=== PATIENT | female | born 1945 | race African-American/Black ===

== ENCOUNTER 2021-11-07 15:39 | Outpatient (CLI) | payer MEDICARE, MEDICAID, SELFPAY ==
[2021-11-07 16:25] LABS: Hematocrit 40.1 % (37.0-47.0); Mean Corpuscular HGB Conc 29.9 g/dl (32-36); Mean Corpuscular Hemoglobin 22.6 pg (26-34); Mean Corpuscular Volume 75.5 fl (80-100); Mean Platelet Volume 9.2 fl (7.4-10.4); Platelet Count Result 166 k/mm3 (150-375); Red Blood Count 5.31 M/mm3 (4.2-5.4); Red Cell Distribution Width 16.2 % (11.5-14.5); White Blood Count 4.8 K/mm3 (4.5-10.0)
[2021-11-07 16:39] LABS: Albumin Level 4.3 g/dL (3.5-5.1); Anion Gap 11 mmol/L (8-16); Blood Urea Nitrogen 21 mg/dL (7-17); Calcium 9.4 mg/dL (8.4-10.2); Carbon Dioxide 31 mmol/L (22-30); Chloride 101 mmol/L (98-107); Estimated Glomerular Filt Rate 48; Glucose 95 mg/dL (65-110); Phosphorus 3.2 mg/dL (2.5-4.5); Sodium 143 mmol/L (137-145)
[2021-11-07 16:40] LABS: Creatinine Urine 320.9 mg/dL
[2021-11-07 16:51] LABS: Parathyroid Intact 161.5 pg/mL (7.5-53.5)
[2021-11-07 17:00] LABS: Total Protein Urine Random < 5 mg/dL; Ur Ttl Prot Creatinine Ratio < 0.02 mg/mg (0-0.20)
== END 2021-11-07 15:40 | disposition home or self-care (01) ==
PROVIDERS: Visit Provider Internal Medicine Nephrology
DX: N18.31 Chronic kidney disease, stage 3a (principal)
CPT/HCPCS: 36415; 80069; 82570; 83970; 84156; 85027

== ENCOUNTER 2022-04-30 13:43 | Outpatient (CLI) | payer MEDICARE, MEDICAID, SELFPAY ==
[2022-04-30 14:15] LABS: Hematocrit 39.1 % (37.0-47.0); Hemoglobin 11.7 g/dL (12.0-15.0); Mean Corpuscular HGB Conc 29.9 g/dl (32-36); Mean Corpuscular Hemoglobin 22.6 pg (26-34); Mean Corpuscular Volume 75.5 fl (80-100); Mean Platelet Volume 9.1 fl (7.4-10.4); Platelet Count Result 151 k/mm3 (150-375); Red Blood Count 5.18 M/mm3 (4.2-5.4); White Blood Count 4.8 K/mm3 (4.5-10.0)
[2022-04-30 14:26] LABS: Albumin Level 4.5 g/dL (3.5-5.1); Anion Gap 15 mmol/L (8-16); Blood Urea Nitrogen 25 mg/dL (7-17); Calcium 9.3 mg/dL (8.4-10.2); Carbon Dioxide 29 mmol/L (22-30); Chloride 100 mmol/L (98-107); Estimated Glomerular Filt Rate 48; Glucose 105 mg/dL (65-110); Phosphorus 3.4 mg/dL (2.5-4.5); Potassium 3.6 mmol/L (3.4-5.0); Sodium 144 mmol/L (137-145)
[2022-04-30 14:38] LABS: Parathyroid Intact 159.3 pg/mL (7.5-53.5)
[2022-04-30 15:03] LABS: Creatinine Urine 206.5 mg/dL
[2022-04-30 15:15] LABS: Total Protein Urine Random < 5 mg/dL; Ur Ttl Prot Creatinine Ratio < 0.02 mg/mg (0-0.20)
== END 2022-04-30 13:44 | disposition home or self-care (01) ==
PROVIDERS: Visit Provider Internal Medicine Nephrology
DX: N18.31 Chronic kidney disease, stage 3a (principal)
CPT/HCPCS: 36415; 80069; 82570; 83970; 84156; 85027

== ENCOUNTER 2022-10-25 14:17 | Outpatient (CLI) | payer MEDICARE, MEDICAID, SELFPAY ==
[2022-10-25 14:52] LABS: Hematocrit 39.5 % (37.0-47.0); Mean Corpuscular HGB Conc 30.4 g/dl (32-36); Mean Corpuscular Hemoglobin 22.9 pg (26-34); Mean Corpuscular Volume 75.2 fl (80-100); Mean Platelet Volume 9.5 fl (7.4-10.4); Platelet Count Result 174 k/mm3 (150-375); Red Blood Count 5.25 M/mm3 (4.2-5.4); Red Cell Distribution Width 17.7 % (11.5-14.5); White Blood Count 4.6 K/mm3 (4.5-10.0)
[2022-10-25 15:05] LABS: Creatinine Urine 232.9 mg/dL
[2022-10-25 15:07] LABS: Albumin Level 4.2 g/dL (3.5-5.1); Anion Gap 5 mmol/L (8-16); Blood Urea Nitrogen 24 mg/dL (7-17); Calcium 9.4 mg/dL (8.4-10.2); Carbon Dioxide 35 mmol/L (22-30); Chloride 99 mmol/L (98-107); Estimated Glomerular Filt Rate 48; Glucose 141 mg/dL (65-110); Phosphorus 3.3 mg/dL (2.5-4.5); Potassium 3.5 mmol/L (3.4-5.0); Sodium 139 mmol/L (137-145)
[2022-10-25 15:18] LABS: Parathyroid Intact 188.7 pg/mL (7.5-53.5)
[2022-10-25 18:43] LABS: Total Protein Urine Random < 5 mg/dL; Ur Ttl Prot Creatinine Ratio < 0.02 mg/mg (0-0.20)
== END 2022-10-25 14:18 | disposition home or self-care (01) ==
PROVIDERS: PCP Internal Medicine; Visit Provider Internal Medicine Nephrology
DX: N18.31 Chronic kidney disease, stage 3a (principal)
CPT/HCPCS: 36415; 80069; 82570; 83970; 84156; 85027

== ENCOUNTER 2022-12-16 10:33 | Emergency (ER) | payer MEDICARE, MEDICAID, SELFPAY ==
--- NOTE | ~2022-12-16 | CT_ITS ---
EXAMINATION: CT cervical spine wo con DATE: 12/16/2022 12:25 INDICATION: Neck pain TECHNIQUE: Computed tomography (CT) of the cervical spine was performed without intravenous contrast. The dose-length product (DLP) was 282.97 mGy-cm. Automated exposure control and iterative reconstruc tion technique were employed. COMPARISON: None FINDINGS: Bone alignment is normal. There is no fracture. The vertebral body heights are maintained. There is moderate loss of intervertebral disc space height at C3-4, C4-5, C5-C6, and C6-7. The odonto id process is intact. There is multilevel moderate to severe facet and uncovertebral joint osteoarthr itis. IMPRESSION: 1. Moderate to severe cervical spondylosis without acute findings. Reviewed, dictated and finalized at location []
--- NOTE | ~2022-12-16 | CT_ITS ---
EXAMINATION: CT brain wo con DATE: 12/16/2022 12:25 INDICATION: Posterior headache and left ear pain for 3 days. TECHNIQUE: Computed tomography (CT) of the head was performed without intravenous contrast. The mA wa s adjusted according to patient size. Iterative reconstruction technique was employed. Exam dose: 68 1.00 mGy-cm total exam DLP. COMPARISON: None FINDINGS: Bilateral vertebral artery calcifications and prominent bilateral carotid siphon internal c arotid artery calcifications. There is nonspecific diminished attenuation of the cerebral white matter, which may be due to chronic small vessel ischemic changes. Bilateral basal ganglia calcifications. The orbits are unremarkable. The mastoid air cells and included paranasal sinuses are normally developed and aerated. Middle and inner ear apparatus appear unremarkable bilaterally. No fracture or bone destruction of the cranial vault is detected. IMPRESSION: Cerebral atherosclerosis and chronic small vessel ischemic changes of the cerebral white matter No acute intracranial finding Reviewed, dictated and finalized at [facility]. Reviewed, dictated and finalized at location [facility].
[2022-12-16 11:00] VITALS: BP 130/68; PULSE 55; RESP 16; TEMP 35.7; O2SAT 93
--- NOTE | 2022-12-16 11:49 | ED.GENADULT ---
HPI - General Adult General Chief complaint: Headache <Joseph Blackman PA-C - Last Filed: 12/16/22 18:03> Stated complaint: pain from shoulders to head/ear pain <Joseph Blackman PA-C - Last Filed: 12/16/22 18:03> Time Seen by Provider: 12/16/22 11:46 <Joseph Blackman PA-C - Last Filed: 12/16/22 18:03> Source: patient <JESSICA Hanson Last Filed: 12/16/22 18:03> Mode of arrival: ambulatory <Joseph Blackman PA-C - Last Filed: 12/16/22 18:03> Limitations: no limitations <JESSICA Hanson Last Filed: 12/16/22 18:03> History of Present Illness HPI narrative: This is a 77-year-old female who presents to the ED with chief complaint of neck pain and headache for the past 3 days. Patient states the pain starts in the base of the neck and shoulders and radiates up into the posterior head. Reports neck stiffness and slight photophobia. Patient states she has some subjective fevers but no recorded temperatures. States she has not been around any sick people lately. States she is feeling somewhat nauseous. Denies fever <Joseph Blackman PA-C - Last Filed: 12/16/22 18:03> Related Data Home medications: Home Medications Medication Instructions Recorded Confirmed midodrine 5 mg tablet 5 mg PO TID 11/19/22 11/19/22 <JESSICA Hanson Last Filed: 12/16/22 18:03> Allergies/adverse reactions: Allergies Allergy/AdvReac Type Severity Reaction Status Date / Time No Known Allergies Allergy Verified 12/16/22 11:02 <JESSICA Hanson Last Filed: 12/16/22 18:03> [facility] Social History Social History: Social History (Updated 11/19/22 @ 11:49 by Norma Huang MA) Smoking status: Former smoker Alcohol intake: unknown Substance use: unknown Lack of Transportation: No Lack of Food: Sometimes True Current Housing: I Have Housing Concerned About Future Housing: No Difficulty Paying Gas/Electric Bills: No Difficulty Paying for Meds: No Currently Unemployed: Decline to Answer Education: High School Diploma/GED Difficulty w/ Childcare or Family Care: No Gender identity (if verbalized by the patient): Female <Joseph Blackman PA-C - Last Filed: 12/16/22 18:03> Exam Narrative: GENERAL: Well-appearing, well-nourished, and in no acute distress. HEAD: Normocephalic, atraumatic. EYES: PERRLA and EOMI. ENT: Nares clear, no rhinorrhea or epistaxis. Mucous membranes moist. Oropharynx without tonsillar hypertrophy exudate or other lesions. TMs intact bilaterally. NECK: Difficulty with range of motion throughout all planes due to pain. No adenopathy or masses. Negative Kernig and Brudzinski signs. CHEST: No respiratory distress. Clear to auscultation. No wheezes rales or rhonchi HEART: Regular rate and rhythm. No murmur heard. Normal peripheral pulses. ABDOMEN: Soft, nontender, nondistended, normal active bowel sounds. MSK: Normal range of motion. No edema. SKIN: Warm, dry, no rash. NEURO: Alert and oriented x3. No focal deficits. PSYCH: Normal mood and affect. <Joseph Blackman PA-C - Last Filed: 12/16/22 18:03> Course MANAGING DIRECTOR ATLAS/PA Physician Supervision For this patient encounter, I reviewed the MANAGING DIRECTOR ATLAS or PA documentation, treatment plan, and I was responsible for the medical decision making; and I had [id number] time with this patient. Patient is afebrile with no leukocytosis. Patient did have a mildly elevated CRP. Patient had negative head and cervical spine imaging. Patient's exam is consistent with a neck strain or torticollis. Patient and family are updated on the treatment plan and importance of close follow-up with the primary care physician but they are also educated on reasons to return to the emergency department. Patient was treated with medications in the emergency department did feel improved. All questions concerns were addressed. <Niels Davis MD - Last Filed: 12/16/22 18:15> Vital Signs Vital signs: Vital Sig
[2022-12-16 12:20] LABS: Basophils Percent Auto 0.3 % (0.2-1.2); Eosinophils Percent Auto 0.5 % (0-4.4); Hematocrit 40.3 % (37.0-47.0); Hemoglobin 12.3 g/dL (12.0-15.0); Immature Granulocyte Absolute 0.02 K/mm3 (0.00-0.031); Immature Granulocyte Percent A 0.3 % (0-0.5); Lymphocytes Absolute Auto 1.14 K/mm3 (0.9-3.2); Mean Corpuscular HGB Conc 30.5 g/dl (32-36); Mean Corpuscular Hemoglobin 22.7 pg (26-34); Mean Corpuscular Volume 74.4 fl (80-100); Monocytes Absolute Auto 0.7 K/mm3 (0.1-0.6); Monocytes Percent Auto 12.2 % (2.6-8.5); Neutrophils Absolute Auto 4.1 K/mm3 (1.3-6.7); Neutrophils Percent Auto 67.7 % (45.5-73.1); Platelet Count Result 124 k/mm3 (150-375); Red Blood Count 5.42 M/mm3 (4.2-5.4); Red Cell Distribution Width 16.6 % (11.5-14.5)
[2022-12-16 12:31] LABS: Alanine Aminotransferase 14 U/L (6-35); Albumin Level 3.8 g/dL (3.5-5.1); Alkaline Phosphatase 46 U/L (38-126); Anion Gap 4 mmol/L (8-16); Aspartate Amino Transferase 22 U/L (14-36); Bilirubin,Total 3.1 mg/dL (0.2-1.3); Blood Urea Nitrogen 18 mg/dL (7-17); CRP 5.7 mg/dL (<1.0); Calcium 9.1 mg/dL (8.4-10.2); Carbon Dioxide 32 mmol/L (22-30); Chloride 102 mmol/L (98-107); Estimated CRCL calculation 50 ml/min; Estimated Glomerular Filt Rate > 60; Glucose 133 mg/dL (65-110); Sodium 138 mmol/L (137-145)
[2022-12-16 12:58] LABS: Anisocytosis 1+ (NORMAL); Hypochromasia 1+ (NORMAL); Microcytosis 1+ (NORMAL); Schistocytes None Seen (NORMAL)
[2022-12-16] MEDS: ORPHENADRINE CITRATE 100 MG TABLET.ER PO (13:05)
[2022-12-16] MEDS: HYDROcodone/acetaminophen (*CRX) 5-325 MG TABLET 1 TAB PO (13:05)
== END 2022-12-16 13:36 | disposition home or self-care (01) ==
PROVIDERS: Emergency Provider Physician Assistant; PCP Internal Medicine
DX: M54.2 Cervicalgia (principal); R51.9 Headache, unspecified; Z87.891 Personal history of nicotine dependence
CPT/HCPCS: 36415; 70450; 72125; 80053; 85025; 86140; 99284; A9270

== ENCOUNTER 2024-04-04 12:34 | Emergency (ER) | payer MEDICARE, MEDICAID, SELFPAY ==
[2024-04-04 13:20] VITALS: BP 118/74; PULSE 77; RESP 20; TEMP 36.4; O2SAT 98
--- NOTE | 2024-04-04 13:43 | ED.FEMALEGU ---
HPI - Female Genitourinary General Chief complaint: Urogenital-Female Stated complaint: blood in urine Time Seen by Provider: 04/04/24 12:58 Source: patient Mode of arrival: ambulatory History of Present Illness HPI Narrative: 78 YEARS OLD FEMALE CAME TO THE ED COMPLAINING OF POSSIBLE BLOOD IN THE URINE NOTICED YESTERDAY. PATIENT ON ELIQUIS. HISTORY OF RECURRENT URINARY TRACT INFECTION. CURRENTLY PATIENT IS STRESSED ABOUT THE ANNIVERSARY OF HER DAUGHTER WHO MARCH LAST YEAR. SHE DENIES ANY FEVER, CHILLS, NAUSEA, VOMITING. Related Data Home Medications Medication Instructions Recorded Confirmed midodrine 5 mg tablet 5 mg PO TID 11/19/22 11/19/22 Allergies Allergy/AdvReac Type Severity Reaction Status Date / Time No Known Allergies Allergy Verified 12/16/22 11:02 Review of Systems Review of Systems: All systems reviewed & are unremarkable except as noted in HPI and below PMFSH Social History Social History Smoking status: Former smoker Alcohol intake: unknown Substance use: unknown Lack of Transportation: No Lack of Food: Sometimes True Current Housing: I Have Housing Concerned About Future Housing: No Difficulty Paying Gas/Electric Bills: No Difficulty Paying for Meds: No Currently Unemployed: Decline to Answer Education: High School Diploma/GED Difficulty w/ Childcare or Family Care: No Gender identity (if verbalized by the patient): Female Exam Narrative: GENERAL APPEARANCE: WELL-DEVELOPED, WELL-NOURISHED SKIN: NORMAL COLOR HEAD: NORMOCEPHALIC, NONTRAUMATIC EYES: CLEAR CONJUNCTIVA ENT: OROPHARYNX NORMAL, EARS NORMAL, NOSE NORMAL NECK: SUPPLE, NONTENDER CHEST AND RESPIRATORY: AIRWAY PATENT, NO RESPIRATORY DISTRESS, NO ACCESSORY MUSCLE USE HEART: REGULAR RATE/RHYTHM ABDOMEN: SOFT, NONTENDER, NO ORGANOMEGALY, QUIET BOWEL SOUNDS VASCULAR: NORMAL PERIPHERAL PULSES, NORMAL CAPILLARY REFILL. MUSCULOSKELETAL: NORMAL RANGE OF MOTION, NONTENDER BACK NEUROLOGIC: ALERT AND ORIENTED ?3, WELDING PROCESS ENGINEER IS NORMAL TESTED, NO GROSS MOTOR DEFICIT Course Vital Signs Vital signs: Vital Signs Temperature 36.4 C 04/04/24 13:20 Pulse Rate 77 04/04/24 13:20 Respiratory Rate 20 04/04/24 13:20 Blood Pressure 118/74 04/04/24 13:20 Pulse Oximetry 98 04/04/24 13:20 Oxygen Delivery Room Air 10/13/24 13:20 Temperature 36.4 C 04/04/24 13:20 Pulse Rate 77 04/04/24 13:20 Respiratory Rate 20 04/04/24 13:20 Blood Pressure 118/74 04/04/24 13:20 Pulse Oximetry 98 04/04/24 13:20 Oxygen Delivery Room Air 04/04/24 13:20 MDM - Female Genitourinary MDM Narrative Medical decision making narrative: PATIENT PRESENTS WITH POSSIBLE BLOOD IN THE URINE VITAL SIGNS STABLE PHYSICAL EXAM IS IN SIGNIFICANT URINARY TRACT INFECTION BLOOD WORKUP TODAY SHOWED WBC 4.7 A URINALYSIS SHOWED EVIDENCE OF INFECTION PATIENT RECEIVED 1 G OF ROCEPHIN IV, DIAGNOSIS URINARY TRACT INFECTION DISCHARGED ON MACROBID THE PT WAS DISCHARGED TO HOME.THE PT,S CONDITION UPON DISCHARGE WAS FAIR,EDUCATION WAS PROVIDED TO THE PT IN REFERENCE TO THE FINAL IMPRESSION,DISCHARGE STUDY RESULTS,TREATMENT,PROGNOSIS AND NEED FOR FOLLOW UP . Differential Diagnosis Differential diagnosis: Likely urinary tract infection Medical Records Attestation: I reviewed the patient's medical records. Lab Data Attestation: I reviewed the patient's lab results. 04/04/24 14:50 04/04/24 14:50 Labs: Lab Results 04/04/24 04/04/24 Range/Units 14:11 14:50 WBC Pending RBC Pending Hgb Pending Hct Pending
[2024-04-04 14:32] LABS: Bacteria Urine None Seen /hpf; Need Manual Microscopic Reviewed; Non Pathogenic Casts 0-2; RBC Urine >100 /hpf (0-2); Squamous Epithelial Cell Urine Occasional /hpf (Few); WBC Urine 21-50 /hpf (0-3)
[2024-04-04 14:34] LABS: Add Urine Microscopic? YES; Appearance Urine Turbid (Clear); Bilirubin Urine 1+ (Negative); Blood Urine 2+ (Negative); Color Urine Red (Yellow); Glucose Urine UA Negative (Negative); Ketones Urine Negative (Negative); Leukocyte Esterase Ur 2+ LEU/UL (Negative); Nitrate Urine Positive (Negative); Protein Urine 2+ mg/dL (Negative); Specific Grav Ur 1.025 (1.001-1.035)
[2024-04-04 14:55] LABS: Basophils Percent Auto 0.2 % (0.2-1.2); Eosinophils Percent Auto 0.8 % (0-4.4); Hematocrit 36.7 % (37.0-47.0); Hemoglobin 11.5 g/dL (12.0-15.0); Immature Granulocyte Absolute 0.02 K/mm3 (0.00-0.031); Immature Granulocyte Percent A 0.4 % (0-0.5); Lymphocytes Absolute Auto 1.12 K/mm3 (0.9-3.2); Lymphocytes Percent Auto 23.6 % (18.3-44.2); Mean Corpuscular HGB Conc 31.3 g/dl (32-36); Mean Corpuscular Hemoglobin 23.5 pg (26-34); Mean Corpuscular Volume 74.9 fl (80-100); Mean Platelet Volume 9.3 fl (7.4-10.4); Monocytes Absolute Auto 0.6 K/mm3 (0.1-0.6); Monocytes Percent Auto 12.7 % (2.6-8.5); Neutrophils Percent Auto 62.3 % (45.5-73.1); Platelet Count Result 150 k/mm3 (150-375); Red Cell Distribution Width 16.6 % (11.5-14.5); White Blood Count 4.7 K/mm3 (4.5-10.0)
[2024-04-04 15:08] LABS: Anion Gap 7 mmol/L (4-12); Blood Urea Nitrogen 17 mg/dL (7-17); Calcium 9.5 mg/dL (8.4-10.2); Carbon Dioxide 30 mmol/L (22-30); Chloride 104 mmol/L (98-107); Estimated CRCL calculation 44 ml/min; Estimated Glomerular Filt Rate > 60; Glucose 92 mg/dL (65-110); Potassium 4.5 mmol/L (3.4-5.0); Sodium 141 mmol/L (137-145)
[2024-04-04 15:28] LABS: Hypochromasia 1+; Platelet Estimate Adequate (Adequate); Schistocytes None Seen
[2024-04-04 15:29] LABS: Anisocytosis 2+; Macrocytosis 1+ (NORMAL)
[2024-04-04 15:39] VITALS: BP 125/75; PULSE 76; RESP 18; O2SAT 100
[2024-04-04 16:55] VITALS: BP 126/92; PULSE 75; O2SAT 100
== END 2024-04-04 17:05 | disposition home or self-care (01) ==
PROVIDERS: Emergency Provider Emergency Medicine; PCP Internal Medicine
DX: N39.0 Urinary tract infection, site not specified (principal); Z87.891 Personal history of nicotine dependence; Z79.01 Long term (current) use of anticoagulants
CPT/HCPCS: 36415; 80048; 81001; 85025; 87086; 96365; 99284; J0696